=== PATIENT | male | born 1970 | race American Indian/Alaskan Native ===

== ENCOUNTER 2016-08-31 19:47 | Emergency (ER) | payer BC ==
[2016-09-01 02:21] VITALS: BP 157/93
--- NOTE | 2016-09-01 02:42 | Emergency Department Report ---
- General Chief complaint: Skin Rash Stated complaint: POISEN CORIE/RASH BILAT ELBOWS Time Seen by Provider: 09/01/16 02:20 Source: patient Mode of arrival: Ambulatory Limitations: No Limitations - History of Present Illness Initial comments: This is a 46-year-old male that presents with pruritus and erythema in bilateral arms. Patient stated was in a canseco with poison corie last week. Patient stated starts developing the symptoms 3 days after contact with the canseco. Patient stated that 3 days ago the first symptom that he encounter was bullae which causes him to itch it. Patient denies any pus, numbness or tingling, fever, or chills. Patient does not seem toxic or ill in appearance. No signs of distress noted. MD complaint: other (pruritic erythema with ballue in upper extremity) -: Gradual, week(s) (1) Tetanus Up to Date: no Location: LUE, RUE Severity: moderate Severity scale (0 -10): 4 Quality: burning, other (itching) Consistency: constant Worsens with: cold therapy Context: none Associated symptoms: denies other symptoms - Related Data Previous Rx's Medication Instructions Recorded Last Taken Type Prednisone [predniSONE] 40 mg PO QDAY 5 Days 09/01/16 Unknown Rx Sulfamethoxazole/Trimethoprim 1 each PO BID 5 Days 09/01/16 Unknown Rx [Bactrim DS TAB] Allergies Allergy/AdvReac Type Severity Reaction Status Date / Time No Known Allergies Allergy Unverified 08/31/16 20:55 Abscess Boil HPI - HPI Chief Complaint: Skin Rash Stated Complaint: POISEN CORIE/RASH BILAT ELBOWS Time Seen by Provider: 09/01/16 02:20 Home Medications: Previous Rx's Medication Instructions Recorded Last Taken Type Prednisone [predniSONE] 40 mg PO QDAY 5 Days 09/01/16 Unknown Rx Sulfamethoxazole/Trimethoprim 1 each PO BID 5 Days 09/01/16 Unknown Rx [Bactrim DS TAB] Allergies/Adverse Reactions: Allergies Allergy/AdvReac Type Severity Reaction Status Date / Time No Known Allergies Allergy Unverified 08/31/16 20:55 ED Review of Systems ROS: Stated complaint: POISEN CORIE/RASH BILAT ELBOWS Other details as noted in HPI Constitutional: denies: chills, fever Eyes: denies: eye pain, eye discharge, vision change ENT: denies: ear pain, throat pain Respiratory: denies: cough, shortness of breath, wheezing Cardiovascular: denies: chest pain, palpitations Endocrine: no symptoms reported Gastrointestinal: denies: abdominal pain, nausea, diarrhea Genitourinary: denies: urgency, dysuria Musculoskeletal: denies: back pain, joint swelling, arthralgia Skin: rash, pruritus. denies: lesions, change in color, change in hair/nails Neurological: denies: headache, weakness, paresthesias Psychiatric: denies: anxiety, depression Hematological/Lymphatic: denies: easy bleeding, easy bruising ED Past Medical Hx - Past Medical History Previous Medical History?: No - Surgical History Past Surgical History?: No - Social History Smoking Status: Current Every Day Smoker Substance Use Type: Alcohol - Medications Home Medications: Home Medications Medication Instructions Recorded Confirmed Last Taken Type Prednisone [predniSONE] 40 mg PO QDAY 5 Days 09/01/16 Unknown Rx Sulfamethoxazole/Trimethoprim 1 each PO BID 5 Days 09/01/16 Unknown Rx [Bactrim DS TAB] ED Physical Exam - General Limitations: No Limitations General appearance: alert, in no apparent distress - Head Head exam: Present: atraumatic, normocephalic - Eye Eye exam: Present: normal appearance - ENT ENT exam: Present: mucous membranes moist - Neck Neck exam: Present: normal inspection - Respiratory Respiratory exam: Present: normal lung sounds bilaterally. Absent: respiratory distress - Cardiovascular Cardiovascular Exam: Present: regular rate, normal rhythm. Absent: systolic murmur, diastolic murmur, rubs, gallop - GI/Abdominal GI/Abdominal exam: Present: soft, normal bowel sounds - Rectal Rectal exam: Present: deferred - Extremities Exam Extremities exam: Present: normal inspection - Back Exam Back exam: Present: normal inspection - Neurological Exam Neurological exam: Present: alert, oriented X3 - Psychiatric Psychiatric exam: Present: normal affect, normal mood - Skin Skin exam: Present: warm, dry, intact, normal color, rash, erythema, other ( bullae). Absent: cyanosis, diaphoretic, urticaria, vesicles, petechiae, pallor , abrasion, ecchymosis ED Course Vital Signs 08/31/16 09/01/16 20:56 02:20 Temperature 98.2 F Pulse Rate 55 L 62 Respiratory 18 18 Rate Blood Pressure 161/101 Blood Pressure 157/93 [Left] O2 Sat by Pulse 100 99 Oximetry ED Medical Decision Making - Medical Decision Making Ed course: This is a 46-year-old male that presents with poison corie 1- I have instructed the patient to use oatmeal baths and cool and use of wet compress to the extremity may be helpful. 2- I also prescribed prednisone 40 mg by mouth for 5 days. I instructed the patient to finish full course of steroid medication. 3- patient received Bactrim for 5 days. I instructed patient to finish full course of antibiotics. 4-at the time of discharge the patient does not seem toxic or ill in appearance. Patient agrees to discharge plan and treatment. No further questions noted by the patient. 5-I instructed patient to follow up with his primary care doctor in 3-5 days. Critical care attestation.: If time is entered above; I have spent that time in minutes in the direct care of this critically ill patient, excluding procedure time. ED Disposition Clinical Impression: Poison corie dermatitis Disposition: DISCHARGED TO HOME OR SELFCARE Is pt being admited?: No Does the pt Need Aspirin: No Condition: Stable Instructions: Poison Corie (ED) Additional Instructions: Follow-up with your primary care doctor in 3-5 days Use oatmeal baths and cool with wet compressors may relieve symptoms Take full course of medication prescribed as directed. If symptoms worsen report back to [facility]. Prescriptions: Prednisone [predniSONE] 40 mg PO QDAY 5 Days Sulfamethoxazole/Trimethoprim [Bactrim DS TAB] 1 each PO BID 5 Days Referrals: PRIMARY CAREMD [Primary Care Provider] - 3-5 Days [facility] [Outside] - 3-5 Days [facility] [Outside] - 3-5 Days Forms: Work/School Release Form(ED)
[2016-09-01] MEDS: BOOSTRIX IM ONE (03:12)
== END 2016-09-01 04:38 | disposition home or self-care (01) ==
LOC: ED 19:47
DX: L23.7 Allergic contact dermatitis due to plants, except food (principal); F17.200 Nicotine dependence, unspecified, uncomplicated
CPT/HCPCS: 90471; 90715

== ENCOUNTER 2016-11-15 14:05 | Emergency (ER) | payer BC ==
[2016-11-15] MEDS ORDERED: BENADRYL PO ONE (19:36)
--- NOTE | 2016-11-15 19:37 | Emergency Department Report ---
HPI - General Chief Complaint: Skin/Abscess/Foreign Body Time Seen by Provider: 11/15/16 19:19 - HPI HPI: This is a 46-year-old male with no known medical conditions presents to ED with generalized but it lesions 3 months. Patient states 2 months ago he came in contact with the plan was to be poison corie. Patient states he went to the ER and has been seen by 2 other primary care clinics who has given him medications but has not had relief. Patient states last week he had a major worsening of the rash spread all the way down to his bilateral arms and right leg. Patient states rash is itching. He denies fevers/chills/nausea/vomiting/chest pain/shortness of breath/ difficulty swallowing or problems. ED Past Medical Hx - Past Medical History Previous Medical History?: No - Surgical History Past Surgical History?: No - Social History Smoking Status: Current Every Day Smoker Substance Use Type: None - Medications Home Medications: Home Medications Medication Instructions Recorded Confirmed Last Taken Type Sulfamethoxazole/Trimethoprim 1 each PO BID 5 Days 09/01/16 Unknown Rx [Bactrim DS TAB] Clindamycin [Clindamycin CAP] 600 mg PO BID #14 capsule 11/15/16 Unknown Rx Hydrocortisone [Hydrocortisone 1% 1 applic TP BID #2 bottle 11/15/16 Unknown Rx LOTION] Prednisone [predniSONE] 40 mg PO QDAY 10 Days 11/15/16 Unknown Rx diphenhydrAMINE [Benadryl CAP] 50 mg PO QHS PRN #24 capsule 11/15/16 Unknown Rx ED Review of Systems ROS: Stated complaint: RASH ON ELBOW POISON CORIE Other details as noted in HPI Constitutional: denies: chills, fever Eyes: denies: eye pain, eye discharge, vision change ENT: denies: ear pain, throat pain Respiratory: denies: cough, shortness of breath, wheezing Cardiovascular: denies: chest pain, palpitations Endocrine: no symptoms reported Gastrointestinal: denies: abdominal pain, nausea, diarrhea Genitourinary: denies: urgency, dysuria Musculoskeletal: denies: back pain, joint swelling, arthralgia Skin: rash, pruritus. denies: lesions Neurological: denies: headache, weakness, paresthesias Psychiatric: denies: anxiety, depression Hematological/Lymphatic: denies: easy bleeding, easy bruising Physical Exam - Physical Exam Vital Signs: Vital Signs 11/15/16 16:22 Temperature 98.6 F Pulse Rate 55 L Respiratory 20 Rate Blood Pressure 160/115 O2 Sat by Pulse 100 Oximetry Physical Exam: GENERAL: Alert and oriented x3, no apparent distress, Normal Gait, atraumatic. HEAD: Head is normocephalic and a-traumatic. EYES: Extra ocular muscles are intact. Pupils are equal, round, and reactive to light and accommodation. MOUTH:Mouth is well hydrated and without lesions. Tonsils nonerythematous or swollen, Uvula midline, Tongue not elevated. Mucous membranes are moist. Posterior pharynx clear, no exudate or lesions. Patent airways. NECK: Supple. Non edematous, No carotid bruits. No lymphadenopathy. Raised dry scaly lesions LUNGS: Symetrical with respiration, No wheezing, no rales or crackles, CTAB. HEART: S1, S2 present, regular rate and rhythm without murmur, no rubs, no gallops. Non tender to palpation EXTREMITIES/MUSCULOSKELETAL: No cyanosis, clubbing, rash, lesions or edema. Full ROM bilaterally. UE/LE Pulses 2+ bilaterally. LE and UE 5+ strength bilaterally, straight leg raise negative bilaterally NEUROLOGIC: The patient is cooperative with no focal neurologic deficits. Cranial nerves II through XII are grossly intact. Normal speech. Normal sensation in bilateral upper extremities, No loss of sensation, SKIN: Warm and dry, raised, dark, black looking, generalized rash on bilateral posterior arms left lateral neck and right lower trunk and legs, No ulceration or induration present. ED Course Vital Signs 11/15/16 16:22 Temperature 98.6 F Pulse Rate 55 L Respiratory 20 Rate Blood Pressure 160/115 O2 Sat by Pulse 100 Oximetry ED Medical Decision Making - Lab Data Result diagrams: 11/15/16 19:43 11/15/16 19:43 - Medical Decision Making 46-year-old male presents to the ED with allergic dermatitis rash ED course: Patient received 125 mg of Solu-Medrol, Benadryl, CBC/CMP completed. CBC shows moderate leukocytosis. CMP normal limits. Discussed this finding is a patient. Discussed with patient need to follow up with logistics project manager. Discussed case with attending Physician Josr who came and looked at the patient and agreed with plan Discussed discharge medications of a stronger dose of poorly close to its and antibiotics for secondary infection of the allergic dermatitis. Blood pressure mildly elevated in the ED stay. Patient received clonidine 0.1 for BP control,patient is a symptomatic. Blood pressure decreased prior to discharge He is alert and oriented 3 is in no distress. Critical care attestation.: If time is entered above; I have spent that time in minutes in the direct care of this critically ill patient, excluding procedure time. ED Disposition Clinical Impression: Rash and nonspecific skin eruption, Allergic dermatitis due to poison corie Disposition: DC-01 TO HOME OR SELFCARE Is pt being admited?: No Does the pt Need Aspirin: No Condition: Stable Instructions: Urticaria (ED), Eczema (ED), Poison Corie (ED) Additional Instructions: Follow-up with logistics project manager as referred. If worsening symptoms return to ED Follow-up for management of blood pressure with her primary care physician Prescriptions: diphenhydrAMINE [Benadryl CAP] 50 mg PO QHS PRN #24 capsule PRN Reason: Rash Clindamycin [Clindamycin CAP] 600 mg PO BID #14 capsule Hydrocortisone [Hydrocortisone 1% LOTION] 1 applic TP BID #2 bottle Prednisone [predniSONE] 40 mg PO QDAY 10 Days Referrals: PRIMARY CAREMD [Primary Care Provider] - 3-5 Days ANDIE GOLDBERG MD [Staff Physician] - 3-5 Days Forms: Accompanied Note, Work/School Release Form(ED)
[2016-11-15] MEDS ORDERED: CATAPRES PO ONE (19:42)
[2016-11-15 19:57] LABS: Basophils % (Auto) 0.6 % (0.0-1.8); Hemoglobin 14.1 gm/dl (11.8-15.2); Mean Corpuscular HGB Conc 33 % (32-34); Mean Corpuscular Hemoglobin 29 pg (28-32); Mean Corpuscular Volume 90 fl (84-94); Platelet Count 307 K/mm3 (140-440); Red Blood Count 4.81 M/mm3 (3.65-5.03); White Blood Count 11.5 K/mm3 (4.5-11.0)
[2016-11-15 20:18] LABS: Alanine Aminotransferase 21 units/L (7-56); Albumin 4.3 g/dL (3.9-5); Albumin/Globulin Ratio 1.8 %; Alkaline Phosphatase 83 units/L (35-129); Anion Gap 17 mmol/L; Blood Urea Nitrogen 15 mg/dL (9-20); Calcium 9.1 mg/dL (8.4-10.2); Carbon Dioxide 27 mmol/L (22-30); Chloride 105.8 mmol/L (98-107); Glucose 86 mg/dL (75-100); Sodium 146 mmol/L (137-145); Total Protein 6.7 g/dL (6.3-8.2)
[2016-11-15 21:47] VITALS: BP 157/98
== END 2016-11-15 21:24 | disposition home or self-care (01) ==
LOC: ED 14:05
DX: L23.7 Allergic contact dermatitis due to plants, except food (principal); F17.200 Nicotine dependence, unspecified, uncomplicated
CPT/HCPCS: 36415; 80053; 85025; 96372; 99283; J2930

== ENCOUNTER 2017-01-22 12:10 | Emergency (ER) | payer BC ==
--- NOTE | 2017-01-22 13:34 | XRay Report ---
Left elbow 3 views: History: Swelling. Findings: There is soft tissue swelling noted in the dorsal aspect of the olecranon process of ulna. No fracture. No joint effusion. No soft tissue calcification. Impression: There is soft tissue swelling dorsal aspect of olecranon process of ulna.
--- NOTE | 2017-01-22 16:26 | Emergency Department Report ---
Upper Extremity - HPI Chief Complaint: Extremity Injury, Upper Stated Complaint: ABSCESS Time Seen by Provider: 01/22/17 16:21 Upper Extremity: Left Elbow (bursitis) Occurred When: >5 Days (1 week) Mechanism: Other (no injury no fall no trauma) Severity: moderate Symptoms: Yes Deformity (left elbow), Yes Swelling, No Pain with Movement, No Limited Range of Movement, No Numbness, No Weakness, No Bruising/Ecchymosis, No Laceration or Abrasion ED Review of Systems ROS: Stated complaint: ABSCESS Other details as noted in HPI Constitutional: denies: chills, fever Eyes: denies: eye pain, eye discharge, vision change ENT: denies: ear pain, throat pain Respiratory: denies: cough, shortness of breath, wheezing Cardiovascular: denies: chest pain, palpitations Endocrine: no symptoms reported Gastrointestinal: denies: abdominal pain, nausea, diarrhea Genitourinary: denies: urgency, dysuria Musculoskeletal: joint swelling, myalgia. denies: back pain Skin: rash (eczema chronic). denies: lesions Neurological: denies: headache, weakness, paresthesias Psychiatric: denies: anxiety, depression Hematological/Lymphatic: denies: easy bleeding, easy bruising ED Past Medical Hx - Past Medical History Previous Medical History?: Yes Hx Hypertension: Yes - Surgical History Past Surgical History?: No - Social History Smoking Status: Never Smoker Substance Use Type: None - Medications Home Medications: Home Medications Medication Instructions Recorded Confirmed Last Taken Type Sulfamethoxazole/Trimethoprim 1 each PO BID 5 Days 09/01/16 Unknown Rx [Bactrim DS TAB] Clindamycin [Clindamycin CAP] 600 mg PO BID #14 capsule 11/15/16 Unknown Rx Hydrocortisone [Hydrocortisone 1% 1 applic TP BID #2 bottle 11/15/16 Unknown Rx LOTION] Prednisone [predniSONE] 40 mg PO QDAY 10 Days 11/15/16 Unknown Rx diphenhydrAMINE [Benadryl CAP] 50 mg PO QHS PRN #24 capsule 11/15/16 Unknown Rx Acetaminophen [Acetaminophen TAB] 650 mg PO Q6HR PRN #30 tablet 01/22/17 Unknown Rx Diclofenac Sodium [Voltaren] 100 gm TP BID #1 tube 01/22/17 Unknown Rx predniSONE [Deltasone] 40 mg PO QDAY #10 tab 01/22/17 Unknown Rx Upper Extremity Exam - Exam General: Vital signs noted. No distress. Alert and acting appropriately. Head and Torso: No HEENT Abnormality, No Neck Tenderness, No Chest/Lungs Abnormality, No Abdominal Tenderness, No Back Tenderness Shoulder Exam: Yes Normal Range of Motion in Shoulder, No Shoulder Tenderness, No Clavicle Tenderness, No Shoulder Deformity, No AC Joint Tenderness Arm Exam: No Arm/Humerus Tenderness, No Arm Deformity Elbow: Yes Elbow Deformity (left elbow bursitis), No Elbow Tenderness, No Normal Range of Motion in Elbow Forearm: No Forearm Tenderness, No Forearm Deformity, No Pain with Pronation, No Pain with Supination Wrist: Yes Normal ROM in Wrist, No Wrist Tenderness, No Wrist Deformity, No Snuffbox Tenderness, No Pain with Axial Thumb Compression Hand: Yes Normal ROM in Digit(s), No Hand Tenderness, No Hand Deformity, No Digit Tenderness, No Digit(s) Deformity, No Tendon Dysfunction CMS Exam: Yes Normal Distal Pulses, Yes Normal Capillary Refill, Yes Normal Distal Sensation, No Broken Skin ED Course Vital Signs 01/22/17 12:34 Temperature 98.1 F Pulse Rate 70 Respiratory 16 Rate Blood Pressure 151/114 O2 Sat by Pulse 100 Oximetry ED Medical Decision Making - Radiology Data Radiology results: report reviewed, image reviewed - Medical Decision Making 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 elbow xray: no fracture . plan diclofenac gel, prednisone, requesting referral to ortho for evaluation will refer to ortho Dr. Acosta pt will call to setup appointment, pt verbalized agreement and uderstanding of discharge plan. Critical care attestation.: If time is entered above; I have spent that time in minutes in the direct care of this critically ill patient, excluding procedure time. ED Disposition Clinical Impression: Olecranon bursitis Qualifiers: Laterality: left Qualified Code(s): M70.22 - Olecranon bursitis, left elbow Disposition: TO HOME OR SELFCARE Is pt being admited?: No Does the pt Need Aspirin: No Condition: Good Instructions: Elbow Bursitis (ED) Prescriptions: Acetaminophen [Acetaminophen TAB] 650 mg PO Q6HR PRN #30 tablet PRN Reason: Pain Diclofenac Sodium [Voltaren] 100 gm TP BID #1 tube predniSONE [Deltasone] 40 mg PO QDAY #10 tab Referrals: JENNIE ACOSTA MD [Staff Physician] - 3-5 Days Forms: Work/School Release Form(ED) Time of Disposition: 16:37
[2017-01-22 16:55] VITALS: BP 129/77
== END 2017-01-22 16:54 | disposition home or self-care (01) ==
LOC: ED 12:10
DX: M70.22 Olecranon bursitis, left elbow (principal); I10 Essential (primary) hypertension

== ENCOUNTER 2018-06-23 10:19 | Emergency (ER) | payer SELFPAY ==
--- NOTE | 2018-06-23 11:09 | Emergency Department Report ---
Suture/Staple Removal - HPI Chief Complaint: Laceration/Recheck/Suture Stated Complaint: SUTURE REMOVAL Time Seen by Provider: 06/23/18 10:53 When Sutures or Jeff Placed: 5-7 Days Ago Wound Location: upper lip ED Review of Systems ROS: Stated complaint: SUTURE REMOVAL Other details as noted in HPI Comment: suture removal only ED Past Medical Hx - Past Medical History Hx Hypertension: Yes - Social History Smoking Status: Never Smoker Substance Use Type: None - Medications Home Medications: Home Medications Medication Instructions Recorded Confirmed Last Taken Type Sulfamethoxazole/Trimethoprim 1 each PO BID 5 Days tablet 09/01/16 Unknown Rx [Bactrim DS TAB] Hydrocortisone [Hydrocortisone 1% 1 applic TP BID #2 bottle 11/15/16 Unknown Rx LOTION] RX: Clindamycin [Clindamycin CAP] 600 mg PO BID #14 capsule 11/15/16 Unknown Rx RX: predniSONE 40 mg PO QDAY 10 Days tab 11/15/16 Unknown Rx diphenhydrAMINE [Benadryl CAP] 50 mg PO QHS PRN #24 capsule 11/15/16 Unknown Rx Diclofenac Sodium [Voltaren] 100 gm TP BID #1 tube 01/22/17 Unknown Rx RX: Acetaminophen [Acetaminophen 650 mg PO Q6HR PRN #30 tablet 01/22/17 Unknown Rx TAB] RX: predniSONE [Deltasone] 40 mg PO QDAY #10 tab 01/22/17 Unknown Rx Suture Removal Exam - Exam General: Vital signs noted. No distress. Alert and acting appropriately. Wound: No Pathologic Erythema, No Tenderness, No Drainage, No Pus, No Wound Dehiscence Other Systems: All other systems reviewed and are unremarkable. ED Recheck MDM - Differential Diagnosis Suture/Staple Removal - Medical Decision Making Sutures were removed without difficulty. There is no drainage. The wound edges are well approximated. Patient is on antibiotics. She has been instructed on continuing wound care. Critical care attestation.: If time is entered above; I have spent that time in minutes in the direct care of this critically ill patient, excluding procedure time. ED Disposition Clinical Impression: Visit for suture removal Disposition: TO HOME OR SELFCARE Is pt being admited?: No Does the pt Need Aspirin: No Condition: Stable Additional Instructions: keep area clean finish antibiotic motrin or tylenol for pain Referrals: TRA OCASIO [Staff Physician] - 3-5 Days Time of Disposition: 11:08
== END 2018-06-23 11:22 | disposition home or self-care (01) ==
LOC: ED 10:19